=== PATIENT | male | born 1985 | race African-American/Black ===

== ENCOUNTER 2016-12-27 18:15 | Emergency (ER) | payer OTHER ==
--- NOTE | 2016-12-27 18:16 | PDOC ---
History of Present Illness - General History Source: Patient Exam Limitations: No Limitations - History of Present Illness Initial Comments: 12/27/16 18:30 The patient is a 31 year old male, with a significant past medical history of PUD, who presents to the emergency department complaining of right sided chest pain for approximately 3 days. The patient reports his chest pain is pleuritic in nature. He describes his pain as constant and nonradiating. He reports his pain is exacerbated when bending forward and alleviated when standing upright or drinking hot tea. He denies any dyspnea, dyspnea on exertion, orthopnea, bilateral lower extremity edema, diaphoresis, or palpitations. Patient reports he had the flu in October of this year. He denies any fever, chills, cough, headache, or dizziness. He denies any recent travel or sick contacts. Allergies: None reported Past Surgical History: None reported Social History: Social ETOH use. Non smoker. No drug use. <Ivonne Zacarias - Last Filed: 12/27/16 21:41> <Maribel Morin - Last Filed: 12/31/16 08:03> - General Chief Complaint: Chest Pain Stated Complaint: CHEST PAIN Time Seen by Provider: 12/27/16 18:16 Past History <Ivonne Zacarias - Last Filed: 12/27/16 21:41> - Past Medical History Anemia: No Asthma: No Cancer: No Cardiac Disorders: No CVA: No COPD: No CHF: No Dementia: No Diabetes: No GI Disorders: Yes (PUD) Disorders: No HTN: No Hypercholesterolemia: No Liver Disease: No Seizures: No Thyroid Disease: No - Surgical History Abdominal Surgery: No Appendectomy: No Cardiac Surgery: No Cholecystectomy: No Lung Surgery: No Neurologic Surgery: No Orthopedic Surgery: No - Psycho/Social/Smoking Cessation Hx Anxiety: No Suicidal Ideation: No Smoking Status: No Smoking History: Never smoked Number of Cigarettes Smoked Daily: 0 Hx Alcohol Use: Yes Drug/Substance Use Hx: No Substance Use Type: Alcohol Hx Substance Use Treatment: No <Maribel Morin - Last Filed: 12/31/16 08:03> - Past Medical History Allergies/Adverse Reactions: Allergies Allergy/AdvReac Type Severity Reaction Status Date / Time No Known Allergies Allergy Verified 12/27/16 18:18 Home Medications: Ambulatory Orders NK [No Known Home Medication] 12/27/16 Review of Systems - Review of Systems Able to Perform ROS?: Yes Comments:: 12/27/16 18:30 GENERAL/CONSTITUTIONAL: No fever or chills. No weakness. HEAD, EYES, EARS, NOSE AND THROAT: No change in vision. No ear pain or discharge. No sore throat. CARDIOVASCULAR: Yes: +chest pain. No shortness of breath. RESPIRATORY: No cough, wheezing, or hemoptysis. GASTROINTESTINAL: No nausea, vomiting, diarrhea or constipation. GENITOURINARY: No dysuria, frequency, or change in urination. MUSCULOSKELETAL: No joint or muscle swelling or pain. No neck or back pain. SKIN: No rash NEUROLOGIC: No headache, vertigo, loss of consciousness, or change in strength/ sensation. ENDOCRINE: No increased thirst. No abnormal weight change. HEMATOLOGIC/LYMPHATIC: No anemia, easy bleeding, or history of blood clots. ALLERGIC/IMMUNOLOGIC: No hives or skin allergy. <Ivonne Zacarias - Last Filed: 12/27/16 21:41> *Physical Exam - Vital Signs Last Vital Signs Temp Pulse Resp BP Pulse Ox 98.4 F 73 18 131/90 100 12/27/16 18:19 12/27/16 18:19 12/27/16 18:19 12/27/16 18:19 12/27/16 18:19 <Ivonne Zacarias - Last Filed: 12/27/16 21:41> - Physical Exam Comments: GENERAL: Awake, alert, and fully oriented, in no acute distress HEAD: No signs of trauma EYES: PERRLA, EOMI, sclera anicteric, conjunctiva clear ENT: Auricles normal inspection, hearing grossly normal, nares patent, oropharynx clear without exudates. Moist mucosa NECK: Normal ROM, supple, no lymphadenopathy, JVD, or masses LUNGS: Breath sounds equal, clear to auscultation bilaterally. No wheezes, and no crackles HEART: Regular rate and rhythm, normal S1 and S2, no murmurs, rubs or gallops ABDOMEN: Soft, nontender, normoactive bowel sounds. No guarding, no rebound. No masses EXTREMITIES: Normal range of motion, no edema. No clubbing or cyanosis. No cords , erythema, or tenderness NEUROLOGICAL: Cranial nerves II through XII grossly intact. Normal speech, normal gait SKIN: Warm, Dry, normal turgor, no rashes or lesions noted. <Maribel Morin - Last Filed: 12/31/16 08:03> Heart Score/ECG Review - ECG Impressions Comment:: EKG read 18:34- NSR 70 bpm, no acute ST/T changes. <Maribel Morin - Last Filed: 12/31/16 08:03> ED Treatment Course - RADIOLOGY Radiology Studies Ordered: 12/27/16 21:40 EXAM:CXR INTERPRETED BY: Dr. Pulliam REVIEWED BY: Dr. Morin IMPRESSION:Unremarkable examination without evidence of acute lung disease. <Ivonne Zacarias - Last Filed: 12/27/16 21:41> Medical Decision Making - Medical Decision Making 12/27/16 18:44 PERC criteria negative. ACS also unlikely. Given that the pain is positional ( reproduced by leaning forward), pericarditis is more likely. <Maribel Morin - Last Filed: 12/31/16 08:03> *DC/Admit/Observation/Transfer - Attestations Scribe Attestion: 12/27/16 18:31 Documentation prepared by Ivonne Zacarias, acting as medical case manager for Maribel Morin MD. <Ivonne Zacarias - Last Filed: 12/27/16 21:41> - Discharge Dispostion Admit: No <Maribel Morin - Last Filed: 12/31/16 08:03> Diagnosis at time of Disposition: Atypical chest pain - Discharge Dispostion Disposition: HOME Condition at time of disposition: Stable - Patient Instructions Printed Discharge Instructions: DI for Atypical Chest Pain Additional Instructions: Motrin 600 mg every 8 hours as needed for pain. If you have worsening pain or if you develop shortness of breath, fever, or any other concerning symptoms, return to the ER immediately. Follow up with your primary care physician in 1-2 days.
[2016-12-27 18:23] VITALS: BP 131/90; PULSE 73; TEMP 98.4; BMI 19.6
[2016-12-27] MEDS ORDERED: IBUPROFEN 600 MG TABLET (FP) PO ONE (18:26)
--- NOTE | 2016-12-28 14:40 | EKG ---
Test Reason : Blood Pressure : / mmHG Vent. Rate : 070 BPM Atrial Rate : 070 BPM P-R Int : 166 ms QRS Dur : 088 ms QT Int : 356 ms P-R-T Axes : 071 064 063 degrees QTc Int : 384 ms NORMAL SINUS RHYTHM MINIMAL VOLTAGE CRITERIA FOR LVH, MAY BE NORMAL VARIANT BORDERLINE ECG NO PREVIOUS ECGS AVAILABLE Confirmed by SHAD FERNANDEZ MD ([id number]) on 12/28/2016 2:40:17 PM Referred By: MD ARIAS Confirmed By:SHAD FERNANDEZ MD
== END 2016-12-27 18:57 | disposition home or self-care (01) ==
LOC: FER 18:15
DX: R07.89 Other chest pain (principal); K27.9 Peptic ulcer, site unspecified, unspecified as acute or chronic, without hemorrhage or perforation
CPT/HCPCS: 71020-TC; 93005; 99282-25